=== PATIENT | male | born 1985 | race Two or more races ===

== ENCOUNTER → 2025-03-28 | Emergency (ER) | payer OTHER ==
[~2025-03-28] VITALS: Ht 177.8 cm; Wt 81.6 kg
[~2025-03-28] MED LIST: 0.9 % SODIUM CHLORIDE 1,000 ML IV STA; LORazepam 2 MG/ML VIAL IM ONE
[2025-03-28 10:33] LABS: BASO % 0.3 % (0.1-1.2); EOS # 0.01 (0.04-0.54); EOS % 0.1 % (0.7-7.0); LYMPH # 1.14 (1.18-3.74); LYMPH % 10.4 % (19.3-53.1); MEAN PLATELET VOLUME 10.00 fl (9.4-12.4); MONO # 0.51 (0.24-0.82); MONO % 4.7 % (4.7-12.5); NEUT # 9.22 (1.56-6.13); NEUT % 84.2 % (34.0-71.1); RED CELL DISTRIBUTION WIDTH 12.6 % (11.6-14.4)
== END | disposition home or self-care (01) ==
LOC: ER 08:20
PROVIDERS: Emergency Medicine
DX: F41.9 Anxiety disorder, unspecified (principal); R11.10 Vomiting, unspecified; R10.9 Unspecified abdominal pain; Z91.013 Allergy to seafood